=== PATIENT | male | born 1985 | race Caucasian/White ===

== ENCOUNTER 2017-04-18 15:50 | Inpatient (IN) | payer OTHER ==
[2017-04-18 17:59] VITALS: BMI 35.4
--- NOTE | 2017-04-18 21:29 | HP ---
CIWA Score - CIWA Score Nausea/Vomitin Muscle Tremors: 4-Moderate,w/Arms Extend Anxiety: 4-Mod. Anxious/Guarded Agitation: 3 Paroxysmal Sweats: 3 Orientation: 0-Oriented Tacttile Disturbances: 1-Very Mild Itch/Numbness Auditory Disturbances: 0-None Visual Disturbances: 0-None Headache: 3-Moderate CIWA-Ar Total Score: 21 Admission ROS BHS - HPI Chief Complaint: Alcohol withdrawal symptoms Allergies/Adverse Reactions: Allergies Allergy/AdvReac Type Severity Reaction Status Date / Time No Known Allergies Allergy Verified 04/18/17 19:02 History of Present Illness: 31 years old male with a long history of alcohol dependence is admitted to detox. Patient has been in previous therapy and reports 5 months of sobriety. This is patient's first treatment in [facility]. Patient denies past medical history and reports psych. history of bipolar and depression. Denies suicidal ideation at this time. Exam Limitations: No Limitations - Ebola screening Have you traveled outside of the country in the last 21 days: No Have you had contact with anyone from an Ebola affected area: No Have you been sick,other than usual withdrawal symptoms: No Do you have a fever: No - Review of Systems Constitutional: Chills, Diaphoresis, Malaise, Night Sweats EENT: reports: No Symptoms Reported Respiratory: reports: No Symptoms reported Cardiac: reports: No Symptoms Reported GI: reports: Poor Appetite, Poor Fluid Intake, Abdominal cramping : reports: No Symptoms Reported Musculoskeletal: reports: Back Pain, Muscle Pain, Muscle Weakness Integumentary: reports: Flushing Neuro: reports: Headache Endocrine: reports: Flushing Hematology: reports: No Symptoms Reported Psychiatric: reports: Agitated, Anxious, Depressed Other Systems: Reviewed and Negative Patient History - Patient Medical History Hx Anemia: No Hx Asthma: No Hx Chronic Obstructive Pulmonary Disease (COPD): No Hx Cancer: No Hx Cardiac Disorders: No Hx Congestive Heart Failure: No Hx Hypertension: No Hx Hypercholesterolemia: No Hx Pacemaker: No HX Cerebrovascular Accident: No Hx Seizures: No Hx Dementia: No Hx Diabetes: No Hx Gastrointestinal Disorders: No Hx Liver Disease: No Hx Genitourinary Disorders: No Hx Sexually Transmitted Disorders: No Hx Renal Disease (ESRD): No Hx Thyroid Disease: No Hx Human Immunodeficiency Virus (HIV): No Hx Hepatitis C: No Hx Depression: Yes Hx Suicide Attempt: No (Denies suicide ideation) Hx Bipolar Disorder: Yes Hx Schizophrenia: No - Patient Surgical History Past Surgical History: No - PPD History Previous Implant?: Yes Documented Results: Negative w/o proof Implanted On Prior [facility] Admission?: No PPD to be Administered?: Yes - Reproductive History Patient is a Female of Child Bearing Age (11 -55 yrs old): No (MALE) - Smoking Cessation Smoking history: Current every day smoker Have you smoked in the past 12 months: Yes Aproximately how many cigarettes per day: 10 Hx Chewing Tobacco Use: No Initiated information on smoking cessation: Yes 'Breaking Loose' booklet given: 04/18/17 - Substances Abused Alcohol Route: Oral Frequency: Daily Amount used: 12 of 12 oz of beer, rum 1 pint only weekends Age of first use: 14 Date of Last Use: 04/18/17 Marijuana/Hashish Route: Smoking Frequency: Daily Amount used: 1 gram Age of first use: 14 Date of Last Use: 04/18/17 Family Disease History - Family Disease History Family History: Denies Admission Physical Exam [facility] - Vital Signs Vital Signs: Vital Signs - 24 hr 04/18/17 17:56 Temperature 97.6 F Pulse Rate 86 Respiratory 18 Rate Blood Pressure 138/74 - Physical General Appearance: Yes: Moderate Distress HEENTM: Yes: EOMI, Normal Voice, JANINE Neck: Yes: Supple, Other (tatoo to right neck) Breast: Yes: Breast Exam Deferred Cardiology: Yes: Regular Rhythm, Regular Rate, S1, S2, Other (tatoo to chest wall) Abdominal: Yes: Normal Bowel Sounds, Soft Genitourinary: Yes: Within Normal Limits Back: Yes: Other Musculoskeletal: Yes: Muscle Pain, Muscle weakness Extremities: Yes: Tremors, Other (tatoo to both hands) Neurological: Yes: Alert, Normal Response Integumentary: Yes: Dry, Pale Lymphatic: Yes: Within Normal Limits - Diagnostic (1) Alcohol dependence with uncomplicated withdrawal Current Visit: Yes Status: Chronic (2) Cannabis dependence, uncomplicated Current Visit: Yes Status: Chronic (3) Nicotine dependence Current Visit: Yes Status: Chronic Qualifiers: Nicotine product type: cigarettes Cleared for Admission [facility] - Detox or Rehab [facility] Level of Care: Medically Managed Detox Regimen/Protocol: Librium [facility] Breath Alcohol Content Breath Alcohol Content: 0 Urine Drug Screen - Results Drug Screen Negative: No Urine Drug Screen Results: THC-Marijuana
[2017-04-18] MEDS ORDERED: chlordiazePOXIDE HCL 25 MG CAPSULE PO PRN (21:39)
[2017-04-18] MEDS ORDERED: IBUPROFEN 400 MG TABLET (FP) PO PRN (21:39)
[2017-04-18] MEDS ORDERED: MENTHOL/PHENOL 1 EACH UD MM PRN (21:39)
[2017-04-18] MEDS ORDERED: ACETAMINOPHEN 325 MG TABLET (FP) PO PRN (21:39)
[2017-04-18] MEDS ORDERED: MAG HYDROX/AL HYDROX/SIMETH 30 ML UNIT-DOSE CUP PO PRN (21:39)
[2017-04-18] MEDS ORDERED: guaiFENesin/D-METHORPHAN HB 10 ML UNIT-DOSE CUPS PO PRN (21:39)
[2017-04-18] MEDS ORDERED: MAGNESIUM CITRATE 300 ML BOTTLE PO PRN (21:39)
[2017-04-18] MEDS ORDERED: LOPERAMIDE HCL 2 MG CAPSULE PO PRN (21:39)
[2017-04-18] MEDS ORDERED: MAGNESIUM HYDROX 2400MG/30ML ORAL SUSPENSION 30 ML CUP PO PRN (21:39)
[2017-04-18] MEDS ORDERED: hydrOXYzine PAMOATE 50 MG CAPSULE (FP) PO PRN (21:39)
[2017-04-18] MEDS ORDERED: P-EPHED 60MG/TRIPROLIDI 2.5MG TABLET PO PRN (21:39)
[2017-04-18] MEDS ORDERED: NICOTINE POLACRILEX 2 MG GUM BC PRN (21:39)
[2017-04-18] MEDS: THIAMINE HCL 100 MG TABLET (FP) PO SCH (22:48)
[2017-04-18] MEDS: chlordiazePOXIDE HCL 25 MG CAPSULE PO SCH (22:49)
[2017-04-19 03:27] LABS: URINE APPEARANCE CLOUDY; URINE BILIRUBIN NEGATIVE (NEGATIVE); URINE BLOOD NEGATIVE (NEGATIVE); URINE COLOR YELLOW; URINE GLUCOSE (UA) NEGATIVE (NEGATIVE); URINE KETONE NEGATIVE (NEGATIVE); URINE NITRITE NEGATIVE (NEGATIVE); URINE PROTEIN NEGATIVE (NEGATIVE); URINE UROBILINOGEN NEGATIVE mg/dL (0.2-1.0)
[2017-04-19] MEDS: chlordiazePOXIDE HCL 25 MG CAPSULE PO SCH ×4 (06:42→22:14)
[2017-04-19 09:52] LABS: MCH 28.9 pg (25.7-33.7); MCHC 33.4 g/dl (32.0-35.9); MEAN CELL VOLUME 86.7 fl (80-96); MEAN PLT VOLUME 10.3 fl (7.5-11.1); PLATELET COUNT 225 K/MM3 (134-434); WHITE BLOOD COUNT 7.2 K/mm3 (4.0-10.0)
--- NOTE | 2017-04-19 10:09 | EKG ---
Test Reason : Blood Pressure : / mmHG Vent. Rate : 065 BPM Atrial Rate : 065 BPM P-R Int : 188 ms QRS Dur : 080 ms QT Int : 396 ms P-R-T Axes : 028 016 004 degrees QTc Int : 411 ms NORMAL SINUS RHYTHM NORMAL ECG NO PREVIOUS ECGS AVAILABLE Confirmed by DOM TAN MD ([id number]) on 04/19/2017 10:09:33 AM Referred By: Confirmed By:DOM TAN MD
[2017-04-19 10:15] LABS: ALBUMIN 3.3 g/dl (3.4-5.0); ALK PHOS 47 U/L (45-117); ANION GAP 5 (8-16); BILIRUBIN,TOTAL 0.7 mg/dL (0.2-1.0); CALCIUM 8.4 mg/dL (8.5-10.1); CO2 28 mmol/L (21-32); CREATININE 0.7 mg/dL (0.7-1.3); GLUCOSE,RANDOM 96 mg/dL (74-106); SGOT/AST 9 U/L (15-37); SGPT/ALT 27 U/L (12-78); TOT PROT 5.9 g/dl (6.4-8.2)
[2017-04-19] MEDS: NICOTINE 14 MG/24 HOURS TOPICAL PATCH TD SCH (10:55)
[2017-04-19] MEDS: PRENATAL VITAMINS W/ FOLIC ACID TABLET (FP) PO SCH (10:55)
[2017-04-19 11:04] LABS: URINE LEUK ESTERASE Negative (NEGATIVE)
--- NOTE | 2017-04-19 11:23 | PN ---
[facility] CIWA - CIWA Score Nausea/Vomitin-No Nausea/No Vomiting Muscle Tremors: 4-Moderate,w/Arms Extend Anxiety: 4-Mod. Anxious/Guarded Agitation: 4-Moderately Restless Paroxysmal Sweats: 1-Minimal Palms Moist Orientation: 0-Oriented Tacttile Disturbances: 3-Moderate Itch/Numb/Burn Auditory Disturbances: 0-None Visual Disturbances: 0-None Headache: 0-None Present CIWA-Ar Total Score: 16 BHS Progress Note (SOAP) Subjective: ANXIETY,SLIGHT IRRITABILITY,FATIGUE. Objective: 04/19/17 11:23 Vital Signs Temperature 96.9 F L 04/19/17 10:00 Pulse Rate 87 04/19/17 10:00 Respiratory Rate 18 04/19/17 10:00 Blood Pressure 107/74 04/19/17 10:00 O2 Sat by Pulse Oximetry (%) Laboratory Last Values WBC 7.2 K/mm3 (4.0-10.0) 04/19/17 07:00 RBC 4.70 M/mm3 (4.00-5.60) 04/19/17 07:00 Hgb 13.6 GM/dL (11.7-16.9) 04/19/17 07:00 Hct 40.8 % (35.4-49) 04/19/17 07:00 MCV 86.7 fl (80-96) 04/19/17 07:00 MCH 28.9 pg (25.7-33.7) 04/19/17 07:00 MCHC 33.4 g/dl (32.0-35.9) 04/19/17 07:00 RDW 13.0 % (11.9-15.9) 04/19/17 07:00 Plt Count 225 K/MM3 (134-434) 04/19/17 07:00 MPV 10.3 fl (7.5-11.1) 04/19/17 07:00 Sodium 141 mmol/L (136-145) 04/19/17 07:00 Potassium 3.9 mmol/L (3.5-5.1) 04/19/17 07:00 Chloride 108 mmol/L (98-107) H 04/19/17 07:00 Carbon Dioxide 28 mmol/L (21-32) 04/19/17 07:00 Anion Gap 5 (8-16) L 04/19/17 07:00 BUN 10 mg/dL (7-18) 04/19/17 07:00 Creatinine 0.7 mg/dL (0.7-1.3) 04/19/17 07:00 Creat Clearance w eGFR > 60 (>60) 04/19/17 07:00 Random Glucose 96 mg/dL (74-106) 04/19/17 07:00 Calcium 8.4 mg/dL (8.5-10.1) L 04/19/17 07:00 Total Bilirubin 0.7 mg/dL (0.2-1.0) 04/19/17 07:00 AST 9 U/L (15-37) L 04/19/17 07:00 ALT 27 U/L (12-78) 04/19/17 07:00 Alkaline Phosphatase 47 U/L (45-117) 04/19/17 07:00 Total Protein 5.9 g/dl (6.4-8.2) L 04/19/17 07:00 Albumin 3.3 g/dl (3.4-5.0) L 04/19/17 07:00 Urine Color Yellow 04/19/17 00:00 Urine Appearance Cloudy 04/19/17 00:00 Urine pH 8.0 (5.0-8.0) 04/19/17 00:00 Ur Specific [place] 1.012 (1.001-1.035) 04/19/17 00:00 Urine Protein Negative (NEGATIVE) 04/19/17 00:00 Urine Glucose (UA) Negative (NEGATIVE) 04/19/17 00:00 Urine Ketones Negative (NEGATIVE) 04/19/17 00:00 Urine Blood Negative (NEGATIVE) 04/19/17 00:00 Urine Nitrite Negative (NEGATIVE) 04/19/17 00:00 Urine Bilirubin Negative (NEGATIVE) 04/19/17 00:00 Urine Urobilinogen Negative mg/dL (0.2-1.0) 04/19/17 00:00 Ur Leukocyte Esterase Negative (NEGATIVE) 04/19/17 00:00 Assessment: 04/19/17 11:23 WITHDRAWAL SX Plan: CONTINUE DETOX
[2017-04-19 11:47] LABS: HIV 1 & 2 AB NEGATIVE; HIV 1 AGp24 NEGATIVE
[2017-04-19] MEDS ORDERED: FLU VACCINE QUAD 60 MCG/0.5 ML (MDV 17-18) IM ONE (12:00)
--- NOTE | 2017-04-19 15:17 | CONSULT ---
[facility] Psychiatric Consult - Data Date of interview: 04/19/17 Admission source: [facility] Identifying data: First admission to [facility] for this 31 y/o male seeking detox treatment on for alcohol and marihuana dependence.Patient is single without children,domiciled,unemployed and supported on SSI benefits. Substance Abuse History: Confirmed by patient in this session.See current [facility] report for details : Smoking history: Current every day smoker. Have you smoked in the past 12 months: Yes. Aproximately how many cigarettes per day: 10. Hx Chewing Tobacco Use: No. Initiated information on smoking cessation: Yes. 'Breaking Loose' booklet given: 04/18/17. - Substances Abused. Alcohol. Route: Oral. Frequency: Daily. Amount used: 12 of 12 oz of beer, rum 1 pint only weekends. Age of first use: 14. Date of Last Use: 04/18/17. * * Marijuana/Hashish. Route: Smoking. Frequency: Daily. Amount used: 1 gram. Age of first use: 14. Date of Last Use: 04/18/17 Medical History: Patient denies medical problems. Psychiatric History: Past history of psychiatric hospitalizations at [facility] (six years ago).Diagnosed with Bipolar Disorder.Prescribed wellbutrin,cogentin and olanzapine (doses not recalled).Mr Medellin reports current psychiatric OPD care at the [facility] day treatment program in [facility].No reported history of suicide attempts. Physical/Sexual Abuse/Trauma History: Patient denies history of abuse. Additional Comment: Urine Drug Screen Results: THC-Marijuana.Noted. Mental Status Exam - Mental Status Exam Alert and Oriented to: Time, Place, Person Cognitive Function: Good Patient Appearance: Well Groomed (short stature) Mood: Nervous, Withdrawn Affect: Mood Congruent Patient Behavior: Fatigued, Cooperative Speech Pattern: Clear, Appropriate Voice Loudness: Normal Thought Process: Goal Oriented Thought Disorder: Not Present Hallucinations: Denies Suicidal Ideation: Denies Homicidal Ideation: Denies Insight/Judgement: Poor Sleep: Well Appetite: Good Muscle strength/Tone: Normal Gait/Station: Normal Psychiatric Findings - Problem List (Geraldine 1, 2,3) (1) Alcohol dependence with uncomplicated withdrawal Current Visit: Yes Status: Acute (2) Cannabis dependence, uncomplicated Current Visit: Yes Status: Acute (3) Nicotine dependence Current Visit: Yes Status: Acute Qualifiers: Nicotine product type: cigarettes (4) Substance induced mood disorder Current Visit: Yes Status: Acute (5) Bipolar disorder Current Visit: Yes Status: Chronic Comment: Slef-report.On medications ( confirmed OPD care). - Initial Treatment Plan Initial Treatment Plan: Psychoeducation.Detoxication in progress.Pharmacy claims are revisited : refills for zyprexa 20 mg/hs (03/20/17) + cogentin 0.5 mg/ hs (03/20/17) + welbutrin XL 300 mg/day (04/04/17) and haldol decanoate 100 mg IM monthly (03/15/17) at [facility] # [id number].As per [facility] report,most recent injection of haldol decanoate was dispensed on 03/27/17.Medications are resumed with the exception of haldol decanoate.Side effects/benfits of each drug are discussed with the patient.He agrees with this careplan.Observation..
[2017-04-19] MEDS: BENZTROPINE MESYLATE 1 MG TABLET (FP) PO SCH ×2 (17:11→22:14)
[2017-04-19] MEDS: OLANZapine 10 MG TABLET PO SCH (22:14)
[2017-04-19] MEDS: THIAMINE HCL 100 MG TABLET (FP) PO SCH (22:14)
[2017-04-20] MEDS: chlordiazePOXIDE HCL 25 MG CAPSULE PO SCH ×3 (06:20→17:27)
[2017-04-20] MEDS: BENZTROPINE MESYLATE 1 MG TABLET (FP) PO SCH ×2 (10:23→22:32)
[2017-04-20] MEDS: NICOTINE 14 MG/24 HOURS TOPICAL PATCH TD SCH (10:23)
[2017-04-20] MEDS: PRENATAL VITAMINS W/ FOLIC ACID TABLET (FP) PO SCH (10:23)
--- NOTE | 2017-04-20 13:49 | PN ---
[facility] CIWA - CIWA Score Nausea/Vomitin-No Nausea/No Vomiting Muscle Tremors: 3 Anxiety: 4-Mod. Anxious/Guarded Agitation: 2 Paroxysmal Sweats: 3 Orientation: 0-Oriented Tacttile Disturbances: 3-Moderate Itch/Numb/Burn Auditory Disturbances: 2-Mild Harshness/Frighten Visual Disturbances: 0-None Headache: 0-None Present CIWA-Ar Total Score: 17 BHS Progress Note (SOAP) Subjective: Tremors, Anxious, Sweating, Fatigue. Objective: PT. A & O X 3, OBSERVED AMBULATING ON UNIT. NO ACUTE DISTRESS. 04/20/17 13:49 Vital Signs Temperature 98.7 F 04/20/17 13:16 Pulse Rate 72 04/20/17 13:16 Respiratory Rate 18 04/20/17 13:16 Blood Pressure 127/87 04/20/17 13:16 O2 Sat by Pulse Oximetry (%) Laboratory Tests 04/18/17 04/19/17 04/19/17 07:00 00:00 07:00 WBC RBC Hgb Hct MCV MCH MCHC RDW Plt Count MPV Sodium Potassium Chloride Carbon Dioxide Anion Gap BUN Creatinine Creat Clearance w eGFR Random Glucose Calcium Total Bilirubin AST ALT Alkaline Phosphatase Total Protein Albumin Urine Color Yellow Urine Appearance Cloudy Urine pH 8.0 Ur Specific [place] 1.012 Urine Protein Negative Urine Glucose (UA) Negative Urine Ketones Negative Urine Blood Negative Urine Nitrite Negative Urine Bilirubin Negative Urine Urobilinogen Negative Ur Leukocyte Esterase Negative RPR Titer Hepatitis C Antibody <0.1 HIV 1&2 Antibody Screen Negative HIV P24 Antigen Negative 04/19/17 04/19/17 04/19/17 07:00 07:00 07:00 WBC 7.2 RBC 4.70 Hgb 13.6 Hct 40.8 MCV 86.7 MCH 28.9 MCHC 33.4 RDW 13.0 Plt Count 225 MPV 10.3 Sodium 141 Potassium 3.9 Chloride 108 H Carbon Dioxide 28 Anion Gap 5 L BUN 10 Creatinine 0.7 Creat Clearance w eGFR > 60 Random Glucose 96 Calcium 8.4 L Total Bilirubin 0.7 AST 9 L ALT 27 Alkaline Phosphatase 47 Total Protein 5.9 L Albumin 3.3 L Urine Color Urine Appearance Urine pH Ur Specific [place] Urine Protein Urine Glucose (UA) Urine Ketones Urine Blood Urine Nitrite Urine Bilirubin Urine Urobilinogen Ur Leukocyte Esterase RPR Titer Nonreactive Hepatitis C Antibody HIV 1&2 Antibody Screen HIV P24 Antigen LABS NOTED. Assessment: 04/20/17 13:50 WITHDRAWAL SYMPTOMS. Plan: CONTINUE DETOX. INCREASE DAILY PO FLUID INTAKE.
[2017-04-20] MEDS: THIAMINE HCL 100 MG TABLET (FP) PO SCH (22:32)
[2017-04-20] MEDS: OLANZapine 10 MG TABLET PO SCH (22:33)
[2017-04-20] MEDS: chlordiazePOXIDE 5 MG CAPSULE PO SCH (22:33)
[2017-04-21] MEDS: chlordiazePOXIDE 5 MG CAPSULE PO SCH ×4 (05:57→18:29)
[2017-04-21] MEDS: PRENATAL VITAMINS W/ FOLIC ACID TABLET (FP) PO SCH (10:36)
[2017-04-21] MEDS: BENZTROPINE MESYLATE 1 MG TABLET (FP) PO SCH ×2 (10:37→22:39)
[2017-04-21] MEDS: NICOTINE 14 MG/24 HOURS TOPICAL PATCH TD SCH (10:37)
--- NOTE | 2017-04-21 14:07 | PN ---
BHS Progress Note (SOAP) Subjective: Sweating, anxious, interrupted sleep Objective: 04/21/17 14:05 Last Vital Signs Temp Pulse Resp BP Pulse Ox 97 F L 66 20 121/81 04/21/17 13:11 04/21/17 13:11 04/21/17 13:11 04/21/17 13:11 Laboratory Tests 04/18/17 04/19/17 04/19/17 07:00 00:00 07:00 WBC RBC Hgb Hct MCV MCH MCHC RDW Plt Count MPV Sodium Potassium Chloride Carbon Dioxide Anion Gap BUN Creatinine Creat Clearance w eGFR Random Glucose Calcium Total Bilirubin AST ALT Alkaline Phosphatase Total Protein Albumin Urine Color Yellow Urine Appearance Cloudy Urine pH 8.0 Ur Specific [place] 1.012 Urine Protein Negative Urine Glucose (UA) Negative Urine Ketones Negative Urine Blood Negative Urine Nitrite Negative Urine Bilirubin Negative Urine Urobilinogen Negative Ur Leukocyte Esterase Negative RPR Titer Hepatitis C Antibody <0.1 HIV 1&2 Antibody Screen Negative HIV P24 Antigen Negative 04/19/17 04/19/17 04/19/17 07:00 07:00 07:00 WBC 7.2 RBC 4.70 Hgb 13.6 Hct 40.8 MCV 86.7 MCH 28.9 MCHC 33.4 RDW 13.0 Plt Count 225 MPV 10.3 Sodium 141 Potassium 3.9 Chloride 108 H Carbon Dioxide 28 Anion Gap 5 L BUN 10 Creatinine 0.7 Creat Clearance w eGFR > 60 Random Glucose 96 Calcium 8.4 L Total Bilirubin 0.7 AST 9 L ALT 27 Alkaline Phosphatase 47 Total Protein 5.9 L Albumin 3.3 L Urine Color Urine Appearance Urine pH Ur Specific [place] Urine Protein Urine Glucose (UA) Urine Ketones Urine Blood Urine Nitrite Urine Bilirubin Urine Urobilinogen Ur Leukocyte Esterase RPR Titer Nonreactive Hepatitis C Antibody HIV 1&2 Antibody Screen HIV P24 Antigen Labs noted Assessment: 04/21/17 14:06 Withdrawal symptoms Plan: Continue detox
[2017-04-21] MEDS: THIAMINE HCL 100 MG TABLET (FP) PO SCH (22:39)
[2017-04-21] MEDS: chlordiazePOXIDE HCL 10 MG CAPSULE PO SCH (22:39)
[2017-04-21] MEDS: OLANZapine 10 MG TABLET PO SCH (22:40)
[2017-04-22] MEDS: chlordiazePOXIDE HCL 10 MG CAPSULE PO SCH ×2 (06:26→10:16)
[2017-04-22] MEDS: NICOTINE 14 MG/24 HOURS TOPICAL PATCH TD SCH (10:16)
[2017-04-22] MEDS: PRENATAL VITAMINS W/ FOLIC ACID TABLET (FP) PO SCH (10:16)
[2017-04-22] MEDS: BENZTROPINE MESYLATE 1 MG TABLET (FP) PO SCH (10:16)
[2017-04-22 13:46] VITALS: BP 138/83; PULSE 105; TEMP 96.5
--- NOTE | 2017-04-22 14:03 | PN ---
BHS Progress Note (SOAP) Subjective: Anxious, Sweating. Objective: PT. A & O X 3, OBSERVED AMBULATING ON UNIT. NO ACUTE DISTRESS. 04/22/17 14:01 Vital Signs Temperature 96.5 F L 04/22/17 13:45 Pulse Rate 105 H 04/22/17 13:45 Respiratory Rate 18 04/22/17 13:45 Blood Pressure 138/83 04/22/17 13:45 O2 Sat by Pulse Oximetry (%) Laboratory Tests 04/18/17 04/19/17 04/19/17 07:00 00:00 07:00 WBC RBC Hgb Hct MCV MCH MCHC RDW Plt Count MPV Sodium Potassium Chloride Carbon Dioxide Anion Gap BUN Creatinine Creat Clearance w eGFR Random Glucose Calcium Total Bilirubin AST ALT Alkaline Phosphatase Total Protein Albumin Urine Color Yellow Urine Appearance Cloudy Urine pH 8.0 Ur Specific [place] 1.012 Urine Protein Negative Urine Glucose (UA) Negative Urine Ketones Negative Urine Blood Negative Urine Nitrite Negative Urine Bilirubin Negative Urine Urobilinogen Negative Ur Leukocyte Esterase Negative RPR Titer Hepatitis C Antibody <0.1 HIV 1&2 Antibody Screen Negative HIV P24 Antigen Negative 04/19/17 04/19/17 04/19/17 07:00 07:00 07:00 WBC 7.2 RBC 4.70 Hgb 13.6 Hct 40.8 MCV 86.7 MCH 28.9 MCHC 33.4 RDW 13.0 Plt Count 225 MPV 10.3 Sodium 141 Potassium 3.9 Chloride 108 H Carbon Dioxide 28 Anion Gap 5 L BUN 10 Creatinine 0.7 Creat Clearance w eGFR > 60 Random Glucose 96 Calcium 8.4 L Total Bilirubin 0.7 AST 9 L ALT 27 Alkaline Phosphatase 47 Total Protein 5.9 L Albumin 3.3 L Urine Color Urine Appearance Urine pH Ur Specific [place] Urine Protein Urine Glucose (UA) Urine Ketones Urine Blood Urine Nitrite Urine Bilirubin Urine Urobilinogen Ur Leukocyte Esterase RPR Titer Nonreactive Hepatitis C Antibody HIV 1&2 Antibody Screen HIV P24 Antigen LABS NOTED. Assessment: 04/22/17 14:02 WITHDRAWAL SYMPTOMS. Plan: CONTINUE DETOX. DUE TO PRESENCE OF LINGERING DETOX SYMPTOMS, PATIENT TO REMAIN ON DETOX UNIT UNTIL TOMORROW, 04/23/2017, AT WHICH TIME A BED WILL BECOME AVAILABLE AT [facility].
--- NOTE | 2017-04-25 18:16 | DS ---
[facility] Detox Discharge Summary Admission Date: 04/18/17 Discharge Date: 04/22/17 - History Present History: Alcohol Dependence, Cannabis Dependence Pertinent Past History: anxiety, depression, insomnia, nicotine dependnce, dehydration - Physical Exam Results Vital Signs: Vital Signs Temperature 96.5 F L 04/22/17 13:45 Pulse Rate 105 H 04/22/17 13:45 Respiratory Rate 18 04/22/17 13:45 Blood Pressure 138/83 04/22/17 13:45 O2 Sat by Pulse Oximetry (%) Laboratory Tests 04/18/17 04/19/17 04/19/17 07:00 00:00 07:00 WBC RBC Hgb Hct MCV MCH MCHC RDW Plt Count MPV Sodium Potassium Chloride Carbon Dioxide Anion Gap BUN Creatinine Creat Clearance w eGFR Random Glucose Calcium Total Bilirubin AST ALT Alkaline Phosphatase Total Protein Albumin Urine Color Yellow Urine Appearance Cloudy Urine pH 8.0 Ur Specific [place] 1.012 Urine Protein Negative Urine Glucose (UA) Negative Urine Ketones Negative Urine Blood Negative Urine Nitrite Negative Urine Bilirubin Negative Urine Urobilinogen Negative Ur Leukocyte Esterase Negative RPR Titer Hepatitis C Antibody <0.1 HIV 1&2 Antibody Screen Negative HIV P24 Antigen Negative 04/19/17 04/19/17 04/19/17 07:00 07:00 07:00 WBC 7.2 RBC 4.70 Hgb 13.6 Hct 40.8 MCV 86.7 MCH 28.9 MCHC 33.4 RDW 13.0 Plt Count 225 MPV 10.3 Sodium 141 Potassium 3.9 Chloride 108 H Carbon Dioxide 28 Anion Gap 5 L BUN 10 Creatinine 0.7 Creat Clearance w eGFR > 60 Random Glucose 96 Calcium 8.4 L Total Bilirubin 0.7 AST 9 L ALT 27 Alkaline Phosphatase 47 Total Protein 5.9 L Albumin 3.3 L Urine Color Urine Appearance Urine pH Ur Specific [place] Urine Protein Urine Glucose (UA) Urine Ketones Urine Blood Urine Nitrite Urine Bilirubin Urine Urobilinogen Ur Leukocyte Esterase RPR Titer Nonreactive Hepatitis C Antibody HIV 1&2 Antibody Screen HIV P24 Antigen Pertinent Admission Physical Exam Findings: withdrawal sx, dehydration - Treatment Hospital Course: Detox Protocol Followed, Detoxed Safely, Responded well, Discharged Condition Good, Rehab Referral Accepted Patient has Accepted a Rehab Referral to: Yes - Medication Discharge Medications: Ambulatory Orders Benztropine Mesylate [Cogentin -] 0.5 mg PO BID 04/18/17 Bupropion HCl [Wellbutrin Xl -] 300 mg PO DAILY 04/18/17 Haloperidol Decanoate [Haldol Decanoate 100] 100 mg IM MONTHLY 04/18/17 Olanzapine 20 mg PO HS 04/18/17 - Diagnosis (1) Alcohol dependence with uncomplicated withdrawal Status: Acute (2) Substance induced mood disorder Status: Acute (3) Bipolar disorder Status: Chronic (4) Cannabis dependence, uncomplicated Status: Chronic (5) Depression Status: Chronic (6) Nicotine dependence Status: Chronic Qualifiers: Nicotine product type: cigarettes - AMA Did Patient Leave Against Medical Advice: No
== END 2017-04-22 14:40 | disposition home or self-care (01) | DRG 775 ==
LOC: YASAS 15:50 → Y3N 19:39
PROVIDERS: ADMIT Internal Medicine; ATTEND Internal Medicine
PROC: HZ2ZZZZ Detoxification Services for Substance Abuse Treatment (ICD-10-PCS; principal; 2017-04-18)
DX: F10.230 Alcohol dependence with withdrawal, uncomplicated (principal); F12.20 Cannabis dependence, uncomplicated; F17.210 Nicotine dependence, cigarettes, uncomplicated; F19.24 Other psychoactive substance dependence with psychoactive substance-induced mood disorder; F31.9 Bipolar disorder, unspecified
CPT/HCPCS: 36415; 80053; 81003; 85027; 86593; 86803; 87389; 93005; 93010